=== PATIENT | male | born 1960 | race Caucasian/White ===

== ENCOUNTER 2024-02-15 14:45 | Outpatient (REF) | payer BC, SELFPAY ==
--- NOTE | ~2024-02-15 | XR_ITS ---
EXAMINATION: XR CHEST CLINICAL INFORMATION: COPD COMPARISON: None available. TECHNIQUE: 2 views of the chest were obtained. FINDINGS: The cardiac silhouette is normal. There is mild diffuse bronchial wall thickening. There are no areas of consolidation. There are no pleural effusions or pneumothoraces. The bones and soft tissues are unremarkable for the patient's age. XR/XR chest 2V IMPRESSION: Bronchial wall thickening may be infectious and/or inflammatory in etiology. Electronically signed by: Lorna Bucio MD 02/16/2024 04:08 AM EDT RP
== END 2024-02-15 14:46 | disposition home or self-care (01) ==
LOC: HO.XRAY 14:45
PROVIDERS: PCP Internal Medicine; Visit Provider Hospitalist
DX: J44.89 Other specified chronic obstructive pulmonary disease (principal); Z23 Encounter for immunization
CPT/HCPCS: 71046; 90677

== ENCOUNTER 2024-02-15 14:45 | Outpatient (AMB) | payer BC, SELFPAY ==
--- NOTE | 2024-02-15 14:54 | A.OFFVIS_ITS ---
Vital Signs 02/15/24 14:55 Height 6 ft Weight 299 lb 13.259 oz BMI 40.7 Pulse 62 Pulse Source Pulse Oximeter Pulse Oximetry (%) 98 Oxygen Delivery Method Room Air Intake Visit Reasons: copd, pulm nodules and pneumonia Can Stacker Required: No Allergies sulfamethoxazole [From Bactrim] Adverse Reaction (Severe, Verified 02/15/24 14:57) Rash trimethoprim [From Bactrim] Adverse Reaction (Severe, Verified 02/15/24 14:57) Rash HPI Comments Details: The patient is here for pulmonary evaluation. The patient is a 63-year-old gentleman with a known history of COPD in addition peumonia not presenting with recent pneumonia and abnormal chest x-ray. Pearly many years ago the patient is evaluated by Pulmonary and had an abnormal CT scan of the chest. At that point the patient did undergo a bronchoscopy for underlying cough chest congestion. The bronchoscopy demonstrated significant cerebral secretions. 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 The patient was treated effectively his symptoms improved for many years. He did continue to use his respiratory inhalers. However, more recently the patient started developing worsening cough again chest congestion. He went to [facility] where he was evaluated. There he had a chest x-ray demonstrating some slight silhouetting of the right hemidiaphragm. Also some slight airspace disease and atelectasis. He was placed on antibiotics and currently he is starting to feel better. Is still having shortness of breath and also having cough. His congestion is indeed better. The patient does have some snoring. Although he denies having significant daytime drowsiness. He has had sleep studies in the past and have been. reassuring. On examination the patient is to have some ectopy. On further questioning he does state that he has had some palpitations. In view of that I do believe that switching his inhaler will be helpful to minimize the beta effect from the Symbicort. He has also been using his albuterol once or twice a day. I did encourage him to just use it as needed in view of his underlying ectopy. I do believe Trelegy will be a good option for him to minimize the palpitations and to maximize his bronchodilator effect. The patient also has chest congestion and with the atelectasis will benefit from a Acapella valve for chest physical therapy. I do believe that dose to additions will be helpful. Will go ahead and plan to repeat the x-ray. If is still has those changes primarily in the right base will plan to request a CT scan of the chest. [facility] Medical History (Updated 02/15/24 @ 23:06 by Kobe Michaels MD) Ventricular ectopy Chronic cough Pneumonia Asthma-COPD overlap syndrome Social History (Updated 02/15/24 @ 15:02 by JOHN Thurston) Patient Tobacco Use Status: Former Tobacco user Tobacco use type: Cigarette Years Smoked: 30+ Years Review of Systems Const Denies fever(s) Eyes Reports no additional complaints ENT Denies sore throat Card Denies chest pain Resp Reports chest congestion, Reports cough and Reports wheezing GI Reports no additional complaints Musc Reports no additional complaints Skin/Breast Denies rash Freddie/Lymph Denies lymphadenopathy Aller/Immun Reports wheezing Physical Exam Vital Signs: Last Vital Signs Pulse 62 02/15/24 14:55 Pulse Ox 98 02/15/24 14:55 Oxygen Delivery Method Room Air 02/15/24 14:55 BMI result Body Mass Index 40.7 Const General: comfortable HEENT Head: Yes normocephalic Neck Neck: Yes supple Chest Chest palpation & inspection: normal inspection of the chest Resp Effort & Inspection: normal respiratory effort Auscultation: no rhonchi, no wheezes and diminished lung sounds Cardio Rate: regular rate Rhythm: regular rhythm and other (ectopy) Heart sounds: S1 normal heart sound present and S2 normal heart sound present GI Palpation (GI): Soft to palpation Skin General skin exam: no rashes or lesions noted Extrem General: Yes no clubbing, cyanosis or edema Assessment & Plan Assessment & Plan (1) Asthma-COPD overlap syndrome: Code(s): J44.89 - Other specified chronic obstructive pulmonary disease Category: Medical (2) Pneumonia: Code(s): J18.9 - Pneumonia, unspecified organism Category: Medical Qualifiers: Pneumonia type: due to unspecified organism Laterality: right Lung location: lower lobe of lung Qualified Code(s): J18.9 - Pneumonia, unspecified organism (3) Chronic cough: Code(s): R05.3 - Chronic cough Category: Medical (4) Ventricular ectopy: Code(s): I49.3 - Ventricular premature depolarization Category: Medical Plan CXR, if abnormal will need aCT chest stop symbicort start Trelegy JOSH as needed Orders: Orders XR chest 2V Today J44.89 - Other specified chronic obstructive pulmonary disease Medications: New [id number]-fghksmlwq-[id number] 100-62.5-25 mcg (Trelegy Ellipta) 1 inh inhalation DAILY 60 ea 11RF 30 days J44.9 - Chronic obstructive pulmonary disease, unspecified Coding Level of Care Code New Pt Level 4 (88072) Diagnoses Asthma-COPD overlap syndrome J44.89 Pneumonia of right lower lobe due to infectious organism J18.9 Pneumonia type: due to unspecified organism Laterality: right Lung location: lower lobe of lung Chronic cough R05.3 Ventricular ectopy I49.3 Time Spent (min) 34
[2024-02-15 14:55] VITALS: PULSE 62; O2SAT 98; BMI 40.7
== END 2024-02-15 15:33 | disposition home or self-care (01) ==
PROVIDERS: PCP Internal Medicine; Referring Provider Internal Medicine; Visit Provider Hospitalist
DX: Z23 Encounter for immunization (principal)
CPT/HCPCS: 99204

== ENCOUNTER 2024-03-18 12:22 | Outpatient (REF) | payer BC, SELFPAY ==
--- NOTE | ~2024-03-18 | CT_ITS ---
EXAMINATION: CT CHEST WITHOUT CONTRAST CLINICAL INFORMATION: Pneumonia COMPARISON: Radiograph from February 15, 2024 TECHNIQUE: Multidetector volumetric CT imaging of the chest was done. Axial MIP volume rendering provided. Sagittal and coronal reformatted images were obtained. This CT examination was performed using dose optimization techniques as appropriate, variously including the following: *Automated exposure control *Adjustment of mA and/or kV according to patient size (this includes techniques or standardized protocols for targeted exams where dose is matched to indication/reason for exam; i.e. extremities or head) *Use of iterative reconstruction technique DLP: 336 mGy-cm FINDINGS: CLOTH MENDER: Unremarkable LUNGS: There is spiculated nodule in the left upper lobe, measured approximately 1.2 x 1.1 cm seen on image 167 series 5, 0.9 cm on image 203, there are few smaller sized nodules seen. There are few nodules in the left lower lobe, such is a conglomerate nodules seen on image 231 and measured 1.4 cm, triangularly shaped consolidation surrounded by groundglass opacity seen in the left lower lobe on image 299, measured 2.5 x 1.2 cm. Irregular consolidation seen in the left lower lobe adjacent to the diaphragm, image 410. Calcified granuloma seen in the left lower lobe subpleural on image 468. On the right, there is oval-shaped nodule seen in the left upper lobe measured 0.6 cm, image 192. 0.3 cm nodule seen on image 203 in the right upper lobe irregular opacity seen on image 223, measured 1.75 x 1.1 cm there is irregular right lower lobe nodule measured 0.5 cm, image 244 There are mild changes of emphysema MEDIASTINUM: The mediastinum is normal. CORONARY ARTERY CALCIFICATION: None visualized on this study. PLEURA: There is no pleural effusion. No pleural mass or thickening. AXILLA: No lymphadenopathy. UPPER ABDOMEN: Unremarkable. OSSEOUS STRUCTURES: Unremarkable. CT/CT chest wo IV con IMPRESSION: 1. Multiple lung nodules and irregular opacities bilaterally. Consider possibility of infection rather than metastasis. 2. Mild changes of emphysema. Fleischner guidelines were followed. Electronically signed by: Gumaro Lane MD 03/20/2024 10:48 AM EDT
== END 2024-03-18 12:23 | disposition home or self-care (01) ==
LOC: HO.CT 12:22
PROVIDERS: PCP Internal Medicine; Visit Provider Hospitalist
DX: J18.9 Pneumonia, unspecified organism (principal); R05.3 Chronic cough; R93.89 Abnormal findings on diagnostic imaging of other specified body structures
CPT/HCPCS: 71250

== ENCOUNTER 2024-03-22 16:37 | Outpatient (REF) | payer BC, SELFPAY | END 2024-03-22 16:38 | disposition home or self-care (01) | LOC: HO.LNP 16:37 | PROVIDERS: Visit Provider Hospitalist | DX: R91.8 Other nonspecific abnormal finding of lung field (principal) | CPT/HCPCS: 87070; 87116; 87205; 87206 ==

== ENCOUNTER 2024-03-28 07:43 | Emergency (ER) | payer BC, SELFPAY ==
--- NOTE | ~2024-03-28 | XR_ITS ---
EXAMINATION: XR CHEST CLINICAL INFORMATION: Cough, recent pneumonia. COMPARISON: CT chest 03/18/2024. Chest radiograph 02/15/2024. TECHNIQUE: 2 views of the chest were obtained. FINDINGS: Compared to chest radiograph from 02/15/2024, increased focal reticulonodular opacities in the lateral left mid to upper lung field and similar degree of diffuse bronchial wall thickening. Several additional pulmonary nodules are better visualized on prior CT chest from 03/18/2024. No pleural effusion. No pneumothorax. Unchanged cardiomediastinal silhouette. No acute osseous findings. XR/XR chest 2V IMPRESSION: Compared to chest radiograph from 02/15/2024, increased focal reticulonodular opacities in the lateral left mid to upper lung field and similar degree of diffuse bronchial wall thickening. Findings are indeterminate and could be related with an infectious/inflammatory process of the small airways. Nevertheless, malignancy cannot be entirely excluded. Consider further evaluation with CT chest. Several additional lung nodules are better visualized on the prior CT chest. Electronically signed by: Mariam Khan MD 03/28/2024 11:11 AM EDT
--- NOTE | ~2024-03-28 | CT_ITS ---
EXAMINATION: CT CHEST WITHOUT CONTRAST CLINICAL INFORMATION: Cough. Abnormal chest radiograph. COMPARISON: Chest radiograph dated 03/28/[address] chest dated 03/18/2024. TECHNIQUE: Multidetector volumetric CT imaging of the chest was done. Axial MIP volume rendering provided. Sagittal and coronal reformatted images were obtained. This CT examination was performed using dose optimization techniques as appropriate, variously including the following: *Automated exposure control *Adjustment of mA and/or kV according to patient size (this includes techniques or standardized protocols for targeted exams where dose is matched to indication/reason for exam; i.e. extremities or head) *Use of iterative reconstruction technique DLP: 472 mGy-cm FINDINGS: TELECOMMUNICATIONS CABLE JOINTER: Unremarkable. LUNGS: Irregular bilateral focal airspace opacities/densities are redemonstrated. These have increased in number when compared to the chest CT dated 03/18/2024 with slight interval decrease in size of the previously seen irregular foci. The waxing and waning appearance of the lesions favors an infectious or inflammatory process over a malignant process. No large mass or large, confluent airspace consolidation. The central airways are patent. MEDIASTINUM: No cardiomegaly. No pericardial effusion. No thoracic aortic dilatation. No superior mediastinal or hilar lymphadenopathy. Unremarkable thyroid. CORONARY ARTERY CALCIFICATION: None. PLEURA: Trace left pleural fluid versus thickening, unchanged. No large pleural effusion. No pneumothorax. AXILLA: No lymphadenopathy. UPPER ABDOMEN: Unremarkable. OSSEOUS STRUCTURES: Unremarkable. CT/CT chest wo IV con IMPRESSION: 1. Irregular bilateral focal airspace opacities/densities are redemonstrated. These have increased in number when compared to the chest CT dated 03/18/2024 with slight interval decrease in size of the previously seen irregular foci. The waxing and waning appearance of the lesions favors an infectious or inflammatory process over a malignant process. 2. No new or increasing lymphadenopathy. Fleischner guidelines were followed. Electronically signed by: Justin Thomas MD 03/28/2024 01:35 PM EDT
[2024-03-28 07:57] VITALS: BP 157/62; PULSE 65; RESP 18; TEMP 37.3; O2SAT 98; BMI 41.7
[2024-03-28 08:11] LABS: MANUAL DIFF FLAG NO
[2024-03-28 08:13] LABS: Basophils Percent Auto 0.4 % (0-2); Eosinophils Absolute Auto 0.1 X10*3/uL (0.0-0.4); Hemoglobin 13.5 g/dl (14.0-18.0); Imm Gran Abs Auto 0.07 X10*3/uL (0.00-0.03); Imm Gran Pct Auto 0.6 % (0.0-0.4); Lymphocytes Absolute Auto 1.3 X10*3/uL (1.2-4.9); Lymphocytes Percent Auto 11.4 % (20-40); Mean Corpuscular HGB Conc 32.9 g/dl (31.0-36.0); Mean Corpuscular Hemoglobin 26.7 pg (27.0-33.0); Mean Corpuscular Volume 81.2 fL (80.0-98.0); Monocytes Absolute Auto 1.3 X10*3/uL (0.1-1.2); Monocytes Percent Auto 11.5 % (2-11); Neutrophils Absolute Auto 8.5 x10*3/uL (2.0-8.3); Neutrophils Percent Auto 75.1 % (45-73); Platelet Count 234 X10*3/uL (160-400); Red Blood Count 5.05 X10*6/uL (4.60-5.80); Red Cell Distribution Width 16.7 % (11.0-16.0); White Blood Count 11.3 X10*3/uL (4.8-10.8)
[2024-03-28 08:26] LABS: Anion Gap 9 (12-20); Blood Urea Nitrogen 17 mg/dL (9-16); Calcium 9.1 mg/dL (8.4-10.2); Carbon Dioxide 25 mmol/L (22-29); Chloride 109 mmol/L (96-108); Creatinine Clr Calc Pharmacy 97.9; Estimated Glomerular Filt Rate > 60; Glucose Random 118 mg/dL (60-115); Sodium 139 mmol/L (135-145)
[2024-03-28 11:22] LABS: Influenza A PCR NEGATIVE (Negative); Influenza B PCR NEGATIVE (Negative); Resp Syncy Virus RNA Qual PCR NEGATIVE (Negative); SARS COV2 PCR INHOUSE NEGATIVE (Negative)
--- NOTE | 2024-03-28 13:17 | ED.URI ---
HPI - URI/Sore Throat General Chief Complaint: Upper Respiratory Symptoms Stated Complaint: quest pneumonia Time Seen by Provider: 03/28/24 12:50 Source: patient and RN notes reviewed Mode of arrival: ambulatory Limitations: no limitations History of Present Illness ED Provider: Mena Max PA-C HPI Narrative: This is a 63-year-old male, with a history of emphysema, who presents emergency department with complaints of ongoing productive cough, subjective fevers and chills, body aches, shortness of breath x 3 weeks, worsening over the last 3 days. Patient was seen by Dr. Michaels on February 15, 2024 after having an abnormal chest x-ray performed in November. He was treated for pneumonia at that time. He was then seen by Dr. Michaels as patient reports approximately 10 years ago he had to have had a bronchoscopy for underlying cough and chest congestion. The bronchoscopy revealed significant secretions, and his sputum culture was positive for Moraxella catarrhalis. At that time he was treated successfully and his symptoms resolved for many years. This year he developed worsening cough and congestion and he was seen at [facility] where there was concern for a pneumonia and was treated with antibiotics and started to feel better. He continues to have ongoing shortness for breath and cough which is why he was seen by Dr. Michaels. He also mentions that he was switch to a Breo inhaler as his previous inhaler was giving him palpitations. He states he was started on Augmentin to treat for a pneumonia on March 11, 2024. He took this for 10 days and felt his symptoms improving up until 3-4 days ago where he developed chest congestion, subjective fevers and chills, body aches. He had a chest CT on 03/18/2024 where there was multiple lung nodules in irregular opacities bilaterally, considering possibility of infection rather than metastasis, mild changes in emphysema. He denies any chest pain, abdominal pain, diarrhea or vomiting. He states that he has had some nausea. He was a former smoker, quit 15 years ago. He also reports drenching night sweats, states that yesterday he had to change his shirt 3 times during the night. No changes in his weight. He denies chest pain, abdominal pain, changes in bowel habits, urinary symptoms, back pain. No other complaints or concerns at this time. MD elicited complaint: cough Pertinent past history: pneumonia and COPD Onset (ago): week(s) Consistency: constant Severity: moderate Associated symptoms: denies other symptoms Treatments prior to arrival: acetaminophen Related Data Home Medications ?Medication ?Instructions ?Recorded ?Confirmed albuterol sulfate 90 mcg/actuation 2 puff inhalation Q6H PRN 02/15/24 aerosol inhaler citalopram 40 mg tablet (Celexa) 20 mg PO DAILY 02/15/24 clonazepam 0.5 mg tablet (Klonopin) 0.5 mg PO DAILY 02/15/24 lamotrigine 25 mg tablet (Lamictal) 25 mg PO DAILY 02/15/24 quetiapine 25 mg tablet (Seroquel) 25 mg PO BEDTIME 02/15/24 topiramate 25 mg tablet (Topamax) 25 mg PO DAILY 02/15/24 trazodone 100 mg tablet 100 mg PO BEDTIME PRN 02/15/24 Previous Rx's ?Medication ?Instructions ?Recorded fluticasone furoate 200 1 inh inhalation DAILY 30 days #60 03/09/24 mcg-vilanterol 25 mcg/dose ea inhalation powder (Breo Ellipta) amoxicillin 875 mg-potassium 1 tab PO BID 10 days #20 tabs 03/11/24 clavulanate 125 mg tablet cefuroxime axetil 500 mg tablet 500 mg PO BID 7 days #14 tabs 03/28/24 doxycycline hyclate 100 mg capsule 100 mg PO BID 7 days #14 caps 03/28/24 Allergies Allergy/AdvReac Type Severity Reaction Status Date / Time sulfamethoxazole AdvReac Severe Rash Verified 03/28/24 07:58 [From Bactrim] trimethoprim [From Bactrim] AdvReac Severe Rash Verified 03/28/24 07:58 Review of Systems Review of Systems: Yes all other systems are reviewed and are negative Constitutional: Constitutional: Reports as per [facility] Past Medical History Attestation statement: The following information was validated with the patient. Medical History Pulmonary nodules Ventricular ectopy Chronic cough Pneumonia Asthma-COPD overlap syndrome Social History Social History Patient Tobacco Use Status: Former Tobacco user Tobacco use type: Cigarette Years Smoked: 30+ Years Physical Exam Vital Signs: Vital Signs: Last Vital Signs Temp 99.1 F 03/28/24 16:14 Pulse 65 03/28/24 16:14 Resp 18 03/28/24 16:14 BP 157/62 H 03/28/24 16:14 Pulse Ox 98 03/28/24 16:14 O2 Del Method Room Air 03/28/24 16:14 BMI result Body Mass Index 41.7 Const: General: cooperative, comfortable and no acute distress Orientation/consciousness: patient oriented x3 Limitations: no limitations HEENT: Head: Yes normal to inspection, Yes normocephalic and Yes atraumatic Ears: hearing grossly normal bilaterally General nose exam: Normal external nose present Face and sinus: Yes normal facial exam Mouth: Normal oral and palatal mucosa present, oropharynx normal and moist mucous membranes Throat: Yes posterior oropharynx normal Eyes: General: appearance normal, both eyes and all related structures Eyelids: Yes eyelids normal Conjunctivae: conjunctivae normal Sclerae: sclerae normal Pupils: Equal, round and reactive pupils present EOM: EOMs intact bilaterally Neck: Neck: Yes normal visual inspection, Yes full ROM and Yes no lymphadenopathy Lymphatic: no lymphadenopathy noted Chest: Chest palpation & inspection: normal inspection of the chest Resp: Effort & Inspection: normal respiratory effort and able to speak in complete sentences Auscultation: clear to auscultation bilaterally, no crackles, no rales, no rhonchi and no wheezes Cardio: Rate: regular rate Rhythm: regular rhythm Heart sounds: S1 normal heart sound present and S2 normal heart sound present GI: Inspection: Yes normal to inspection Skin: General skin exam: no rashes or lesions noted Trauma: no lacerations or abrasions Wounds: no wounds Neuro: General: patient oriented x3 and moves all extremities Cranial nerves: Yes Equal, round and reactive pupils present Extrem: Other: no BL pitting edema noted General: Yes normal to inspection Right upper extremity: normal to inspection Left upper extremity: normal to inspection Right lower extremity: normal to inspection Left lower extremity: normal to inspection Course Reevaluation(s) Reevaluation #1: CT chest returns as Irregular bilateral focal airspace opacities/densities are redemonstrated. These have increased in number when compared to the chest CT dated 03/18/2024 with slight interval decrease in size of the previously seen irregular foci. The waxing and waning appearance of the lesions favors an infectious or inflammatory process over a malignant process. No new or increasing lymphadenopathy. Gven this is not a definitive pneumonia picture, it is unclear if this is a true failure of outpatient management for pneumonia. Given that patient has normal vitals, normal lung sounds, and improved while being on ABX before, will trial double coverage ABX with a cephalosporin and doxycycline as well as prednisone. Discussed this with lamp shade assembler, Dr. Michaels who is in agreement and will f/u with patient on thursday. Discussed overall workup with patient who is in agreement with this. Discussed strict return precautions. Pt understands and agrees with plan. Pt stable for d.c. Medications Administered Discontinued Medications Generic Name Dose Route Start Last Admin Trade Name Freq PRN Reason Stop Dose Admin Acetaminophen 975 mg 03/28/24 13:54 03/28/24 14:49 Acetaminophen 325 Mg Tablet PO 03/28/24 13:55 975 mg ONCE ONE Administration Cefuroxime Axetil 500 mg 03/28/24 15:48 03/28/24 16:12 Cefuroxime Axetil 500 Mg Tablet PO 03/28/24 15:49 500 mg ONCE ONE Administration Doxycycline Monohydrate 100 mg 03/28/24 15:48 03/28/24 16:12 Doxycycline Monohydrate 100 Mg Capsule PO 03/28/24 15:49 100 mg ONCE ONE Administration Medical Decision Making Medical Decision Making [facility] Narrative: This is a 63-year-old male who presents emergency department with complaints of cough, congestion, subjective fevers and chills, drenching night sweats. He has had ongoing lung infections, previously diagnosed with pneumonia twice this past year, recently diagnosed with pneumonia on March 11, 2024 and was treated with a ten-day course of Augmentin. He states that his symptoms did improve while on the antibiotics however have worsened. On arrival, vital signs within normal limits other than patient being slightly hypertensive at 157/62. He is afebrile, speaking in full sentences under no acute distress. Lungs are diminished otherwise clear to auscultation. He has no lower extremity swelling. Labs were performed prior to my assessment, he does have a slight leukocytosis at 11.3, creatinine 1.1 with a BUN of 17. Glucose 118. No previous labs for comparison. A chest x-ray was performed prior to my assessment. This revealed increased focal reticular nodular opacities in the left lateral mid to upper lung field and similar degree of diffuse bronchial wall thickening. Indeterminate with infectious versus inflammatory process in the small airways however malignancy can not be excluded. CT scan was recommended. CT scan still pending at this time. Given ongoing symptoms, as well as failure of outpatient antibiotic treatment, patient may need inpatient level of care however will await CT scan for further diagnostics. Lactic and cultures also ordered. Differential Diagnosis Differential Diagnoses: The differential diagnosis associated with the presentation includes Pneumonia, malignancy, URI, COPD exacerbation Admission/Observation Consideration of admission/observation: Escalation of care including admission/observation considered Lab Data [facility] Lab Attestation statement: I reviewed the patient's lab results. Slight leukocytosis at 11.3, with left shift, see above [facility] for further details. 03/28/24 08:04 03/28/24 08:04 Labs: Lab Results 03/28/24 03/28/24 Range/Units 08:04 10:30 WBC 11.3 H (4.8-10.8) X10*3/uL RBC 5.05 (4.60-5.80) X10*6/uL Hgb 13.5 L (14.0-18.0) g/dl Hct 41.0 L (42.0-52.0) % MCV 81.2 (80.0-98.0) fL MCH 26.7 L (27.0-33.0) pg MCHC 32.9 (31.0-36.0) g/dl RDW 16.7 H (11.0-16.0) % Plt Count 234 (160-400) X10*3/uL MPV 10.0 (9.4-12.4) fL Immature Gran % (Auto) 0.6 H (0.0-0.4) % Neut % (Auto) 75.1 H (45-73) % Lymph % (Auto) 11.4 L (20-40) % Taylor % (Auto) 11.5 H (2-11) % Eos % (Auto) 1.0 (0-4) % Baso % (Auto) 0.4 (0-2) % Lymph # (Auto) 1.3 (1.2-4.9) X10*3/uL Taylor # (Auto) 1.3 H (0.1-1.2) X10*3/uL Eos # (Auto) 0.1 (0.0-0.4) X10*3/uL Baso # (Auto) 0.0 (0.0-0.2) X10*3/uL Abs Immat Gran (auto) 0.07 H (0.00-0.03) X10*3/uL Absolute Neuts (auto) 8.5 H (2.0-8.3) x10*3/uL Absolute Nucleated RBC 0.000 (0.0-0.012) X10*3/uL Nucleated RBC % (auto) 0.0 (0.0-0.2) /100WBC Sodium 139 (135-145) mmol/L Potassium 4.0 (3.3-5.1) mmol/L Chloride 109 H (96-108) mmol/L Carbon Dioxide 25 (22-29) mmol/L Anion Gap 9 L (12-20) BUN 17 H (9-16) mg/dL Creatinine 1.10 (0.5-1.4) mg/dL Estim Creat Clear Calc 97.9 Estimated GFR > 60 Random Glucose 118 H (60-115) mg/dL Calcium 9.1 (8.4-10.2) mg/dL Influenza Type A (PCR) NEGATIVE (Negative) Influenza Type B (PCR) NEGATIVE (Negative) RSV RNA Qual (PCR) NEGATIVE (Negative) SARS-CoV-2 RNA (RT-PCR) NEGATIVE (Negative) Radiology Impression Discussion of test interpretation with radiology: I have reviewed the radiologist's reading. Radiologist Impression: XR/XR chest 2V IMPRESSION: Compared to chest radiograph from 02/15/2024, increased focal reticulonodular opacities in the lateral left mid to upper lung field and similar degree of diffuse bronchial wall thickening. Findings are indeterminate and could be related with an infectious/inflammatory process of the small airways. Nevertheless, malignancy cannot be entirely excluded. Consider further evaluation with CT chest. Several additional lung nodules are better visualized on the prior CT chest. Electronically signed by: Mariam Khan MD 03/28/2024 11:11 AM EDT RP Dictated By: Mariam Khan CT/CT chest wo IV con IMPRESSION: 1. Irregular bilateral focal airspace opacities/densities are redemonstrated. These have increased in number when compared to the chest CT dated 03/18/2024 with slight interval decrease in size of the previously seen irregular foci. The waxing and waning appearance of the lesions favors an infectious or inflammatory process over a malignant process. 2. No new or increasing lymphadenopathy. Fleischner guidelines were followed. Electronically signed by: Justin Thomas MD 03/28/2024 01:35 PM EDT RP Workstation: [id number] Dictated By: Justin Thomas MD Discharge Plan Discharge Clinical Impression: Upper respiratory infection, Chronic cough Patient Disposition: Home, Self-Care Instructions: Upper Respiratory Infection (ED), Acute Cough (ED) Additional Instructions: You were seen in the emergency department due to an ongoing cough. Your CT scan shows infectious versus inflammatory process. However you need to follow-up with Dr. Michaels as scheduled on Thursday. We are placing you on double coverage antibiotics to treat as if this was an infectious process. Please finish the entire course even if your feeling better you were given your 1st dose in the department today. I am also prescribing you prednisone, please take as prescribed. If any new or worsening symptoms occur including but not limited to fevers not responding to Tylenol or Motrin, severe chest pain severe shortness for breath, palpitations, please return for re-evaluation. Prescriptions: New doxycycline hyclate 100 mg capsule 100 mg PO BID 7 Days Qty: 14 0RF cefuroxime axetil 500 mg tablet 500 mg PO BID 7 Days Qty: 14 0RF No Action fluticasone furoate-vilanterol [Breo Ellipta] 200-25 mcg/dose blister with device 1 inh inhalation DAILY 30 Days Qty: 60 11RF amoxicillin-pot clavulanate 875-125 mg tablet 1 tab PO BID 10 Days Qty: 20 0RF albuterol sulfate 90 mcg/actuation HFA aerosol inhaler 2 puff inhalation Q6H PRN citalopram [Celexa] 40 mg tablet 20 mg PO DAILY trazodone 100 mg tablet 100 mg PO BEDTIME PRN quetiapine [Seroquel] 25 mg tablet 25 mg PO BEDTIME lamotrigine [Lamictal] 25 mg tablet 25 mg PO DAILY topiramate [Topamax] 25 mg tablet 25 mg PO DAILY clonazepam [Klonopin] 0.5 mg tablet 0.5 mg PO DAILY Stand Alone Forms: Work/School Release Interventions: ED Discharge Assessment Last Done: 03/28/24 16:14 Discharge Date/Time: 03/28/24 16:15 Print Language: Maori
[2024-03-28] MEDS: Acetaminophen 325 MG TABLET 975 MG PO (14:49)
[2024-03-28] MEDS: Doxycycline Monohydrate 100 MG CAPSULE PO (16:12)
[2024-03-28] MEDS: cefuroxime axetiL 500 MG TABLET PO (16:12)
[2024-03-28 16:14] VITALS: BP 157/62; PULSE 65; RESP 18; TEMP 37.3; O2SAT 98
== END 2024-03-28 16:15 | disposition home or self-care (01) ==
PROVIDERS: Physician Assistant Medical; Emergency Provider Emergency Medicine; PCP Internal Medicine
DX: J06.9 Acute upper respiratory infection, unspecified (principal); R05.3 Chronic cough; R06.02 Shortness of breath; Z03.818 Encounter for observation for suspected exposure to other biological agents ruled out; Z87.01 Personal history of pneumonia (recurrent)
CPT/HCPCS: 0241U; 36415; 71046; 71250; 80048; 85025; 87040; 99283; 99284

== ENCOUNTER 2024-04-01 14:59 | Outpatient (AMB) | payer BC, SELFPAY ==
[2024-04-01 15:19] VITALS: BP 138/68; PULSE 66; O2SAT 98; BMI 42.1
--- NOTE | 2024-04-01 15:19 | MHC.OFFVIS ---
Vital Signs 04/01/24 15:19 Height 5 ft 11 in Weight 302 lb 0.533 oz BMI 42.1 BP 138/68 Blood Pressure Location Lt brachial Position Sitting Pulse 66 Pulse Source Pulse Oximeter Pulse Oximetry (%) 98 Oxygen Delivery Method Room Air Intake Visit Reasons: Pneumonia Weighbridge Operator Required: No Allergies sulfamethoxazole [From Bactrim] Adverse Reaction (Severe, Verified 04/01/24 15:22) Rash trimethoprim [From Bactrim] Adverse Reaction (Severe, Verified 04/01/24 15:22) Rash HPI Comments Details: The patient is a 63-year-old gentleman with a known history of COPD in addition peumonia now presenting with recent pneumonia and abnormal chest x-ray. Pearly many years ago the patient is evaluated by Pulmonary and had an abnormal CT scan of the chest. At that point the patient did undergo a bronchoscopy for underlying cough chest congestion. The bronchoscopy demonstrated significant secretions. 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 The patient was treated effectively his symptoms improved for many years. He did continue to use his respiratory inhalers. However, more recently the patient started developing worsening cough again chest congestion. He went to [facility] urgent Care where he was evaluated. There he had a chest x-ray demonstrating some slight silhouetting of the right hemidiaphragm. Also some slight airspace disease and atelectasis. He was placed on antibiotics and currently he is starting to feel better. Is still having shortness of breath and also having cough. His congestion is indeed better. The patient does have some snoring. Although he denies having significant daytime drowsiness. He has had sleep studies in the past and have been. reassuring. On examination the patient is to have some ectopy. On further questioning he does state that he has had some palpitations. In view of that I do believe that switching his inhaler will be helpful to minimize the beta effect from the Symbicort. He has also been using his albuterol once or twice a day. I did encourage him to just use it as needed in view of his underlying ectopy. I do believe Trelegy will be a good option for him to minimize the palpitations and to maximize his bronchodilator effect. The patient also has chest congestion and with the atelectasis will benefit from a Acapella valve for chest physical therapy. I do believe that dose to additions will be helpful. Will go ahead and plan to repeat the x-ray. If is still has those changes primarily in the right base will plan to request a CT scan of the chest. 04/01/2024 the patient is here for a pulmonary follow-up visit. The patient is no better. He is still having significant congestion. Moderate severity. Also shortness of breath. Did complete a course of antibiotics without any significant improvement. The patient did have a normal CT scan back in the end of February. Subsequently after that was treated and then a repeat CT scan was done actually demonstrating worsening areas of irregular nodular densities in addition to patchy consolidations and pulmonary nodules. In view of his worsening CT scan and is ineffective response to antibiotics will plan to perform a bronchoscopy for diagnostic purposes and also hopefully for therapeutic purposes as well. Also, the patient will undergo blood work to further assess the worsening respiratory findings. [facility] Medical History Pulmonary nodules Ventricular ectopy Chronic cough Pneumonia Asthma-COPD overlap syndrome Social History Patient Tobacco Use Status: Former Tobacco user Tobacco use type: Cigarette Years Smoked: 30+ Years Review of Systems Const Denies fever(s) Eyes Reports no additional complaints ENT Denies sore throat Card Denies chest pain Resp Reports chest congestion, Reports cough and Reports wheezing GI Reports no additional complaints Musc Reports no additional complaints Skin/Breast Denies rash Freddie/Lymph Denies lymphadenopathy Aller/Immun Reports wheezing Physical Exam Vital Signs: Last Vital Signs Pulse 66 04/01/24 15:19 BP 138/68 04/01/24 15:19 Pulse Ox 98 04/01/24 15:19 Oxygen Delivery Method Room Air 04/01/24 15:19 BMI result Body Mass Index 42.1 Const General: comfortable HEENT Head: Yes normocephalic Neck Neck: Yes supple Chest Chest palpation & inspection: normal inspection of the chest Resp Effort & Inspection: normal respiratory effort Auscultation: no rhonchi, no wheezes and diminished lung sounds Cardio Rate: regular rate Rhythm: regular rhythm and other (ectopy) Heart sounds: S1 normal heart sound present and S2 normal heart sound present GI Palpation (GI): Soft to palpation Skin General skin exam: no rashes or lesions noted Extrem General: Yes no clubbing, cyanosis or edema Assessment & Plan Assessment & Plan (1) Asthma-COPD overlap syndrome: Code(s): J44.89 - Other specified chronic obstructive pulmonary disease Category: Medical (2) Pneumonia: Code(s): J18.9 - Pneumonia, unspecified organism Category: Medical Qualifiers: Laterality: right Lung location: lower lobe of lung Pneumonia type: due to unspecified organism Qualified Code(s): J18.9 - Pneumonia, unspecified organism (3) Chronic cough: Code(s): R05.3 - Chronic cough Category: Medical (4) Pulmonary nodules: Code(s): R91.8 - Other nonspecific abnormal finding of lung field Category: Medical Plan bloodwork plan for bronchoscopy Trelegy JOSH as needed Orders: Orders T Spot TB Today J18.9 - Pneumonia, unspecified organism, R91.8 - Other nonspecific abnormal finding of lung field HIV Ab/Ag Today J18.9 - Pneumonia, unspecified organism, R91.8 - Other nonspecific abnormal finding of lung field Immunoglobulins,IgG IgA IgM Today J18.9 - Pneumonia, unspecified organism, R91.8 - Other nonspecific abnormal finding of lung field Immunoglobulin E Today J18.9 - Pneumonia, unspecified organism, R91.8 - Other nonspecific abnormal finding of lung field Erythrocyte Sedimentation Rate Today J18.9 - Pneumonia, unspecified organism, R91.8 - Other nonspecific abnormal finding of lung field ISAMAR Reflex Titer and Pattern Today J18.9 - Pneumonia, unspecified organism, R91.8 - Other nonspecific abnormal finding of lung field Medications: New albuterol sulfate 2.5 mg (3 mL) inhalation Q6H 30 days PRN 180 mL 11RF shortness of breath or wheezing Coding Level of Care Code Est Pt Level 4 (24161) Diagnoses Asthma-COPD overlap syndrome J44.89 Pneumonia of right lower lobe due to infectious organism J18.9 Laterality: right Lung location: lower lobe of lung Pneumonia type: due to unspecified organism Chronic cough R05.3 Pulmonary nodules R91.8 Time Spent (min) 17
== END 2024-04-01 15:39 | disposition home or self-care (01) ==
PROVIDERS: PCP Internal Medicine; Visit Provider Hospitalist
DX: J44.89 Other specified chronic obstructive pulmonary disease (principal); J18.9 Pneumonia, unspecified organism; R05.3 Chronic cough; R91.8 Other nonspecific abnormal finding of lung field
CPT/HCPCS: 99214

== ENCOUNTER → 2024-04-01 14:59 | Outpatient (BNVA) | payer BC, SELFPAY | PROVIDERS: PCP Internal Medicine; Visit Provider Hospitalist ==

== ENCOUNTER 2024-04-04 11:25 | Outpatient (REF) | payer BC, SELFPAY ==
[2024-04-04 13:03] LABS: Erythrocyte Sedimentation Rate 16 MM/HR (0-15)
[2024-04-05 07:48] LABS: IgA 354 mg/dL (70-320); IgG 994 mg/dL (600-1540); IgM 52 mg/dL (50-300)
[2024-04-05 08:23] LABS: HIV AB/AG Nonreactive (Nonreactive); HIV Num 1 0.05 S/CO (0.00-0.99)
[2024-04-05 14:23] LABS: Immunoglobulin E <2 kU/L (<OR=114)
[2024-04-06 08:14] LABS: Anti Nuclear Antibody Screen NEGATIVE (NEGATIVE)
[2024-04-06 22:38] LABS: TS Negative Control Passed; TS Panel A 0; TS Panel B 1; TS Positive Control Passed; TSpotTB Negative (Negative)
== END 2024-04-04 11:26 | disposition home or self-care (01) ==
LOC: HO.LAB 11:25
PROVIDERS: PCP Internal Medicine; Visit Provider Hospitalist
DX: R91.8 Other nonspecific abnormal finding of lung field (principal); J18.9 Pneumonia, unspecified organism
CPT/HCPCS: 36415; 82784; 82785; 85652; 86038; 86481; 87389

== ENCOUNTER 2024-04-12 10:28 | Day surgery (SDC) | payer BC, SELFPAY ==
--- NOTE | 2024-04-08 14:28 | HO.ANESPROP2 ---
Documented by User: Luzma Erazo NP 04/08/24 14:29 HPI - Anesthesia Eval Consult details Narrative: 63yo M for Bronchoscopy Fiberoptic PMFSH Active Problems Active Problems: All Active Problems Pulmonary nodules (Acute) Standard chest x-ray abnormal (Acute) Ventricular ectopy (Acute) Chronic cough (Acute) Pneumonia (Acute) Asthma-COPD overlap syndrome (Acute) Past Medical History Medical History Pulmonary nodules Ventricular ectopy Chronic cough Pneumonia Asthma-COPD overlap syndrome Social History Social History Patient Tobacco Use Status: Former Tobacco user Tobacco use type: Cigarette Years Smoked: 30+ Years Second Hand Smoke Exposure: No Meds Allergies Allergy/AdvReac Type Severity Reaction Status Date / Time sulfamethoxazole AdvReac Severe Rash Verified 04/01/24 15:22 [From Bactrim] trimethoprim [From Bactrim] AdvReac Severe Rash Verified 04/01/24 15:22 Home Medications ?Medication ?Instructions ?Recorded ?Confirmed ?Last Taken ?Type albuterol sulfate 90 mcg/actuation 2 puff inhalation Q6H PRN 02/15/24 Unknown History aerosol inhaler citalopram 40 mg tablet (Celexa) 20 mg PO DAILY 02/15/24 Unknown History clonazepam 0.5 mg tablet (Klonopin) 0.5 mg PO DAILY 02/15/24 Unknown History lamotrigine 25 mg tablet (Lamictal) 25 mg PO DAILY 02/15/24 Unknown History quetiapine 25 mg tablet (Seroquel) 25 mg PO BEDTIME 02/15/24 Unknown History topiramate 25 mg tablet (Topamax) 25 mg PO DAILY 02/15/24 Unknown History trazodone 100 mg tablet 100 mg PO BEDTIME PRN 02/15/24 Unknown History citalopram 20 mg tablet 20 mg PO DAILY 04/01/24 Unknown History Exam Pertinent Lab Results Pertinent Lab Results: Laboratory Tests 03/28/24 08:04 WBC 11.3 H Hgb 13.5 L Hct 41.0 L Plt Count 234 Sodium 139 Potassium 4.0 Chloride 109 H Carbon Dioxide 25 BUN 17 H Creatinine 1.10 Assessment and Plan Assessment Anesthesia Assessment: Chart Reviewed Documented by User: Nayan Arshad MD 04/12/24 15:38 PMFSH Past Medical History Medical History Pulmonary nodules Ventricular ectopy Chronic cough Pneumonia Asthma-COPD overlap syndrome Family History Family history of problems with anesthesia: No Surgical History History of Problems with Anesthesia: No Social History Social History Patient Tobacco Use Status: Former Tobacco user Tobacco use type: Cigarette Years Smoked: 30+ Years Second Hand Smoke Exposure: No Meds Allergies Allergy/AdvReac Type Severity Reaction Status Date / Time sulfamethoxazole AdvReac Severe Rash Verified 04/01/24 15:22 [From Bactrim] trimethoprim [From Bactrim] AdvReac Severe Rash Verified 04/01/24 15:22 Home Medications ?Medication ?Instructions ?Recorded ?Confirmed ?Last Taken ?Type albuterol sulfate 90 mcg/actuation 2 puff inhalation Q6H PRN 02/15/24 Unknown History aerosol inhaler citalopram 40 mg tablet (Celexa) 20 mg PO DAILY 02/15/24 Unknown History clonazepam 0.5 mg tablet (Klonopin) 0.5 mg PO DAILY 02/15/24 Unknown History lamotrigine 25 mg tablet (Lamictal) 25 mg PO DAILY 02/15/24 Unknown History quetiapine 25 mg tablet (Seroquel) 25 mg PO BEDTIME 02/15/24 Unknown History topiramate 25 mg tablet (Topamax) 25 mg PO DAILY 02/15/24 Unknown History trazodone 100 mg tablet 100 mg PO BEDTIME PRN 02/15/24 Unknown History citalopram 20 mg tablet 20 mg PO DAILY 04/01/24 Unknown History Exam Airway Mallampati Class: II TM Dist: >3cm Neck ROM: Full Loose/Missing/Broken Teeth: Yes Assessment and Plan Assessment Anesthesia Assessment: Anesthesia Plan Discussed Final Anesthetic Review Family History of Problems with Anesthesia: No History of Problems with Anesthesia: No NPO: Yes ASA Class: III Final Preanesthetic Review: No Changes in Pt Med Stat, Meds/Allgs Chart Reviewed, Consent Obtained/Reviewed and Anes Risks/Benef Reviewed Patient Risk: Intermediate Procedure Risk: Low Anesthetic Plan Anesthetic Plan: GA Disposition: Standard PACU
--- NOTE | 2024-04-12 10:35 | MHC.SHP ---
Pre-Procedural Eval Section A - 24 Hr Update-Section A only Date of Service: 04/12/24 The patient is an INPATIENT: No Changes since office visit: No Cold of Flu in the past 2 weeks, No New Medical Problems, No Changes in Medication and No Patient answered all questions The patient has been examined within 24 hours of the surgical procedure. The History & Physical has been completed within 30 days and I have reviewed it.: Yes Section B - Complete if H&P > 30 days Chief Complaint: Pneumonia, unspecified organism Allergies: Allergies Allergy/AdvReac Type Severity Reaction Status Date / Time sulfamethoxazole AdvReac Severe Rash Verified 04/01/24 15:22 [From Bactrim] trimethoprim [From Bactrim] AdvReac Severe Rash Verified 04/01/24 15:22 Plan I have reviewed the history and physical and performed a pertinent physical examination on my patient. No changes have occurred unless specified. Time Spent With Patient Time: Total time managing care of this patient today ____ minutes.
[2024-04-12 10:51] VITALS: BMI 42.1
[2024-04-12 11:04] VITALS: BP 132/85; PULSE 70; RESP 18; TEMP 36.6; O2SAT 98
[2024-04-12] MEDS: Lactated Ringers 1,000 ML 100 ML IVCONT (11:05)
[2024-04-12 12:55] VITALS: BP 150/70; PULSE 72; RESP 20; TEMP 36.9; O2SAT 100
[2024-04-12 13:00] VITALS: BP 129/50; PULSE 68; RESP 18; O2SAT 96
--- NOTE | 2024-04-12 13:03 | PM.OP ---
Brief Operative Note Date of Service: 04/12/24 Pre-op diagnosis: pneumonia Post-op diagnosis: other (pneumonia, RLL endobronchial polypoid area, Tracheobronchomalecia) Procedure: Bronchoscopy with biopsy, washings and brushings Implants: Surgeon: Kobe Michaels MD Anesthesia: GLMA Was an Automobile Damage Appraiser used for this Procedure?: No Estimated blood loss (mL): 1 Pathology: other (RLL ENDOBRONCHIAL BIOPSY) Condition: stable Disposition: same day
[2024-04-12 13:05] VITALS: BP 132/70; PULSE 67; RESP 18; O2SAT 96
[2024-04-12 13:10] VITALS: BP 124/67; PULSE 67; RESP 17; O2SAT 96
[2024-04-12 13:28] VITALS: BP 125/71; PULSE 66; RESP 17; TEMP 36.1; O2SAT 97
--- NOTE | 2024-04-13 00:03 | OP_ITS ---
DATE OF SERVICE: 04/12/2024 SURGEON: Kobe Michaels MD PREOPERATIVE DIAGNOSIS: Pneumonia. POSTOPERATIVE DIAGNOSIS: PROCEDURE PERFORMED: Bronchoscopy with biopsy, brushings and washings. ESTIMATED BLOOD LOSS: COMPLICATIONS: No evidence of any complications. ANESTHESIA: POWER. ASSISTANTS: None. SPECIMENS: ASA CLASSIFICATION: III. POSTOPERATIVE DIAGNOSES: Pneumonia along with chronic airway disease, tracheobronchomalacia, and polypoid lesion in the right lower lobe bronchus intermedius area. DESCRIPTION OF PROCEDURE: After the patient was adequately sedated, a flexible digital bronchoscope was inserted via the POWER to the level of the larynx. The larynx appeared to be a little edematous but otherwise normal. Vocal cords were moving symmetrically to the midline. There was indeed a little microaspiration appreciated suggesting the possibility of recurrent infections. After receiving the lidocaine, the bronchoscope was passed the vocal cords to the level of the trachea. Initially, the proximal trachea appeared to be narrowed, such as saber-sheath trachea and then met to lower part of the trachea where appeared to be more consistent with tracheomalacia. The patient also had evidence of bronchomalacia. There were some irregularities to the mucosa consistent with chronic airway disease. The patient did have moderate amount of mucid secretions. The bronchoscope was navigated to the entire tracheobronchial tree, examined without any evidence of any endobronchial lesions except for this polypoid area and the bronchus intermedius area, right lower lobe bronchi, where it was appeared to be normal mucosa, but it was just an area that was raised. Then, navigated to the left lower lobe area and cytologic and microscopic brushes were introduced into that area, sent to the appropriate locations. Bilateral washings were collected bilaterally, both for cytology and microbiology. Subsequently to that, using forceps, an endobronchial biopsy of the polypoid area and the right lower lobe bronchi was collected and sent in formalin to the pathologist. He did have some bleeding, but it was self limited and reached good hemostasis. The patient also was developing some hyperventilation with the LMA and CO2 elavation, so at that point we stopped the procedure. The patient tolerated the procedure well. Vital signs were stable throughout the procedure. MD RINKU Post/LORRIE / [id number] [facility] [place] [facility]
== END 2024-04-12 13:48 | disposition home or self-care (01) ==
PROVIDERS: PCP Internal Medicine; Visit Provider Hospitalist
PROC: 0BJ08ZZ Inspection of Tracheobronchial Tree, Via Natural or Artificial Opening Endoscopic (ICD-10-PCS; CPT 31622; principal; 2024-04-12 12:00)
DX: J18.9 Pneumonia, unspecified organism (principal); J44.9 Chronic obstructive pulmonary disease, unspecified; J39.8 Other specified diseases of upper respiratory tract; J98.09 Other diseases of bronchus, not elsewhere classified; Z87.891 Personal history of nicotine dependence
CPT/HCPCS: 31625; 31623; 87070; 87102; 87116; 87205; 87206; 88112; 88305; J0171; J2003; J2704; J3010

== ENCOUNTER → 2024-04-12 10:28 | Outpatient (BNV) | payer BC, SELFPAY | PROVIDERS: PCP Internal Medicine; Visit Provider Hospitalist | DX: J18.9 Pneumonia, unspecified organism (principal); J39.8 Other specified diseases of upper respiratory tract; J98.09 Other diseases of bronchus, not elsewhere classified; R91.1 Solitary pulmonary nodule | CPT/HCPCS: 31623; 31625 ==

== ENCOUNTER 2024-04-28 13:29 | Outpatient (AMB) | payer BC, SELFPAY ==
--- NOTE | 2024-04-28 13:34 | MHC.OFFVIS ---
Vital Signs 04/28/24 13:35 Weight 296 lb 8.348 oz BP 138/78 Blood Pressure Location Rt brachial Position Sitting Pulse 75 Pulse Source Pulse Oximeter Pulse Oximetry (%) 97 Oxygen Delivery Method Room Air Intake Visit Reasons: S/P Bronch Allergies sulfamethoxazole [From Bactrim] Adverse Reaction (Severe, Verified 04/28/24 13:38) Rash trimethoprim [From Bactrim] Adverse Reaction (Severe, Verified 04/28/24 13:38) Rash Medication List - Last Reconciled 04/28/24 by Brittney Mayer LPN albuterol sulfate 2.5 mg (3 mL) inhalation Q6H PRN 30 days albuterol sulfate 90 mcg/actuation 2 puffs inhalation Q6H PRN citalopram 20 mg PO DAILY citalopram (Celexa) 20 mg PO DAILY clonazepam (Klonopin) 0.5 mg PO DAILY fluticasone furoate-vilanterol 200-25 mcg/dose (Breo Ellipta) 1 inh inhalation DAILY 30 days lamotrigine (Lamictal) 25 mg PO DAILY quetiapine (Seroquel) 25 mg PO BEDTIME topiramate (Topamax) 25 mg PO DAILY trazodone 100 mg PO BEDTIME PRN HPI Comments Details: The patient is a 63-year-old gentleman with a known history of COPD in addition peumonia now presenting with recent pneumonia and abnormal chest x-ray. Pearly many years ago the patient is evaluated by Pulmonary and had an abnormal CT scan of the chest. At that point the patient did undergo a bronchoscopy for underlying cough chest congestion. The bronchoscopy demonstrated significant secretions. 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 The patient was treated effectively his symptoms improved for many years. He did continue to use his respiratory inhalers. However, more recently the patient started developing worsening cough again chest congestion. He went to [facility] urgent [facility] where he was evaluated. There he had a chest x-ray demonstrating some slight silhouetting of the right hemidiaphragm. Also some slight airspace disease and atelectasis. He was placed on antibiotics and currently he is starting to feel better. Is still having shortness of breath and also having cough. His congestion is indeed better. The patient does have some snoring. Although he denies having significant daytime drowsiness. He has had sleep studies in the past and have been. reassuring. On examination the patient is to have some ectopy. On further questioning he does state that he has had some palpitations. In view of that I do believe that switching his inhaler will be helpful to minimize the beta effect from the Symbicort. He has also been using his albuterol once or twice a day. I did encourage him to just use it as needed in view of his underlying ectopy. I do believe Trelegy will be a good option for him to minimize the palpitations and to maximize his bronchodilator effect. The patient also has chest congestion and with the atelectasis will benefit from a Acapella valve for chest physical therapy. I do believe that dose to additions will be helpful. Will go ahead and plan to repeat the x-ray. If is still has those changes primarily in the right base will plan to request a CT scan of the chest. 04/01/2024 the patient is here for a pulmonary follow-up visit. The patient is no better. He is still having significant congestion. Moderate severity. Also shortness of breath. Did complete a course of antibiotics without any significant improvement. The patient did have a normal CT scan back in the end of February. Subsequently after that was treated and then a repeat CT scan was done actually demonstrating worsening areas of irregular nodular densities in addition to patchy consolidations and pulmonary nodules. In view of his worsening CT scan and is ineffective response to antibiotics will plan to perform a bronchoscopy for diagnostic purposes and also hopefully for therapeutic purposes as well. Also, the patient will undergo blood work to further assess the worsening respiratory findings. 04/28/2024 the patient is here for a pulmonary follow-up visit. Overall the patient is doing okay. He did have the bronchoscopy. Did have some evidence of tracheomalacia and also narrowing of the trachea and also evidence of chronic airway disease. He had a little polypoid area that was biopsy as well. Her his cultures have been negative up-to-date although I am still waiting for the AFB cultures since there is a risk for smoldering non tuberculosis mycobacterial infection. The patient also has issues with reflux disease. We did talk about reflux diet and sleeping elevated. In the meantime will try him on azithromycin 500 mg 3 times a week to see if there is any improvement in his symptoms as we wait for the cultures. The patient does have Seroquel that he takes at nighttime. He will stop that so we can take the azithromycin. He also will check his QT with his EKG application. Again, we did look at his CT scan of the chest. It appears that he has some evidence of treating budding in nodular densities in a bronchovascular distribution. This indeed could be related to an infectious process although his cultures are negative again with still waiting for the AFB but also aspiration Bronchiolitis/pneumonitis is also in differential. [facility] Medical History Pulmonary nodules Ventricular ectopy Chronic cough Pneumonia Asthma-COPD overlap syndrome Social History Patient Tobacco Use Status: Former Tobacco user Tobacco use type: Cigarette Years Smoked: 30+ Years Second Hand Smoke Exposure: No Review of Systems Const Denies fever(s) Eyes Reports no additional complaints ENT Denies sore throat Card Denies chest pain Resp Reports chest congestion, Reports cough and Reports wheezing GI Reports no additional complaints Musc Reports no additional complaints Skin/Breast Denies rash Freddie/Lymph Denies lymphadenopathy Aller/Immun Reports wheezing Physical Exam Vital Signs: Last Vital Signs Pulse 75 04/28/24 13:35 BP 138/78 04/28/24 13:35 Pulse Ox 97 04/28/24 13:35 Oxygen Delivery Method Room Air 04/28/24 13:35 Const General: comfortable HEENT Head: Yes normocephalic Neck Neck: Yes supple Chest Chest palpation & inspection: normal inspection of the chest Resp Effort & Inspection: normal respiratory effort Auscultation: no rhonchi, no wheezes and diminished lung sounds Cardio Rate: regular rate Rhythm: regular rhythm and other (ectopy) Heart sounds: S1 normal heart sound present and S2 normal heart sound present GI Palpation (GI): Soft to palpation Skin General skin exam: no rashes or lesions noted Extrem General: Yes no clubbing, cyanosis or edema Assessment & Plan Assessment & Plan (1) Asthma-COPD overlap syndrome: Code(s): J44.89 - Other specified chronic obstructive pulmonary disease Category: Medical (2) Pneumonia: Code(s): J18.9 - Pneumonia, unspecified organism Category: Medical Qualifiers: Laterality: right Lung location: lower lobe of lung Pneumonia type: due to unspecified organism Qualified Code(s): J18.9 - Pneumonia, unspecified organism (3) Chronic cough: Code(s): R05.3 - Chronic cough Category: Medical (4) Pulmonary nodules: Code(s): R91.8 - Other nonspecific abnormal finding of lung field Category: Medical Plan start Azithromycin MWF hold Seroquel EKG, monitor QT awaitng AFB cultures Trelegy JOSH as needed F/U 3 months Medications: New azithromycin Thursday, Thursday, Thursday 500 mg PO 3XW 12 tabs 3RF 28 days Coding Level of Care Code Est Pt Level 4 (37347) Diagnoses Asthma-COPD overlap syndrome J44.89 Pneumonia of right lower lobe due to infectious organism J18.9 Laterality: right Lung location: lower lobe of lung Pneumonia type: due to unspecified organism Chronic cough R05.3 Pulmonary nodules R91.8 Time Spent (min) 17
[2024-04-28 13:35] VITALS: BP 138/78; PULSE 75; O2SAT 97
== END 2024-04-28 14:07 | disposition home or self-care (01) ==
LOC: HO.HPS 13:29
PROVIDERS: PCP Internal Medicine; Visit Provider Hospitalist
DX: J44.89 Other specified chronic obstructive pulmonary disease (principal); J18.9 Pneumonia, unspecified organism; R05.3 Chronic cough; R91.8 Other nonspecific abnormal finding of lung field
CPT/HCPCS: 99214

== ENCOUNTER → 2024-04-28 13:29 | Outpatient (BNVA) | payer BC, SELFPAY | PROVIDERS: PCP Internal Medicine; Visit Provider Hospitalist ==

== ENCOUNTER → 2024-04-29 13:07 | Outpatient (BNV) | payer BC, SELFPAY | PROVIDERS: PCP Internal Medicine; Visit Provider Internal Medicine Cardiovascular Disease | DX: J44.9 Chronic obstructive pulmonary disease, unspecified (principal) | CPT/HCPCS: 93010 ==

== ENCOUNTER → 2024-04-29 13:07 | Outpatient (REF) | payer BC, SELFPAY ==
--- NOTE | 2024-04-29 | ECG_ITS ---
Test Reason : COPD Blood Pressure : / mmHG Vent. Rate : 061 BPM Atrial Rate : 061 BPM P-R Int : 170 ms QRS Dur : 090 ms QT Int : 438 ms P-R-T Axes : 032 034 075 degrees QTc Int : 440 ms Normal sinus rhythm Nonspecific T wave abnormality Abnormal ECG No previous ECGs available Referred By: Kobe Michaels Electronically Signed By:SERGE CANALES MD
== END ==
LOC: HO.CARD 13:07
PROVIDERS: PCP Internal Medicine; Visit Provider Hospitalist
DX: J44.9 Chronic obstructive pulmonary disease, unspecified (principal)
CPT/HCPCS: 93005

== ENCOUNTER 2024-08-02 13:53 | Outpatient (AMB) | payer BC, SELFPAY ==
--- NOTE | 2024-08-02 13:54 | MHC.OFFVIS ---
Vital Signs 08/02/24 13:57 Height 5 ft 11 in Weight 308 lb 10.354 oz BMI 43.0 BP 142/88 H Blood Pressure Location Rt brachial Position Sitting Pulse 58 Pulse Source Pulse Oximeter Pulse Oximetry (%) 99 Oxygen Delivery Method Room Air Intake Visit Reasons: Asthma/COPD Allergies sulfamethoxazole [From Bactrim] Adverse Reaction (Severe, Verified 08/02/24 14:00) Rash trimethoprim [From Bactrim] Adverse Reaction (Severe, Verified 08/02/24 14:00) Rash HPI Comments Details: The patient is a 63-year-old gentleman with a known history of COPD in addition peumonia now presenting with recent pneumonia and abnormal chest x-ray. Pearly many years ago the patient is evaluated by Pulmonary and had an abnormal CT scan of the chest. At that point the patient did undergo a bronchoscopy for underlying cough chest congestion. The bronchoscopy demonstrated significant secretions. 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 The patient was treated effectively his symptoms improved for many years. He did continue to use his respiratory inhalers. However, more recently the patient started developing worsening cough again chest congestion. He went to [facility] urgent Care where he was evaluated. There he had a chest x-ray demonstrating some slight silhouetting of the right hemidiaphragm. Also some slight airspace disease and atelectasis. He was placed on antibiotics and currently he is starting to feel better. Is still having shortness of breath and also having cough. His congestion is indeed better. The patient does have some snoring. Although he denies having significant daytime drowsiness. He has had sleep studies in the past and have been. reassuring. On examination the patient is to have some ectopy. On further questioning he does state that he has had some palpitations. In view of that I do believe that switching his inhaler will be helpful to minimize the beta effect from the Symbicort. He has also been using his albuterol once or twice a day. I did encourage him to just use it as needed in view of his underlying ectopy. I do believe Trelegy will be a good option for him to minimize the palpitations and to maximize his bronchodilator effect. The patient also has chest congestion and with the atelectasis will benefit from a Acapella valve for chest physical therapy. I do believe that dose to additions will be helpful. Will go ahead and plan to repeat the x-ray. If is still has those changes primarily in the right base will plan to request a CT scan of the chest. 04/01/2024 the patient is here for a pulmonary follow-up visit. The patient is no better. He is still having significant congestion. Moderate severity. Also shortness of breath. Did complete a course of antibiotics without any significant improvement. The patient did have a normal CT scan back in the end of February. Subsequently after that was treated and then a repeat CT scan was done actually demonstrating worsening areas of irregular nodular densities in addition to patchy consolidations and pulmonary nodules. In view of his worsening CT scan and is ineffective response to antibiotics will plan to perform a bronchoscopy for diagnostic purposes and also hopefully for therapeutic purposes as well. Also, the patient will undergo blood work to further assess the worsening respiratory findings. 04/28/2024 the patient is here for a pulmonary follow-up visit. Overall the patient is doing okay. He did have the bronchoscopy. Did have some evidence of tracheomalacia and also narrowing of the trachea and also evidence of chronic airway disease. He had a little polypoid area that was biopsy as well. Her his cultures have been negative up-to-date although I am still waiting for the AFB cultures since there is a risk for smoldering non tuberculosis mycobacterial infection. The patient also has issues with reflux disease. We did talk about reflux diet and sleeping elevated. In the meantime will try him on azithromycin 500 mg 3 times a week to see if there is any improvement in his symptoms as we wait for the cultures. The patient does have Seroquel that he takes at nighttime. He will stop that so we can take the azithromycin. He also will check his QT with his EKG application. Again, we did look at his CT scan of the chest. It appears that he has some evidence of treating budding in nodular densities in a bronchovascular distribution. This indeed could be related to an infectious process although his cultures are negative again with still waiting for the AFB but also aspiration Bronchiolitis/pneumonitis is also in differential. 08/02/2024 the patient is here for a pulmonary follow-up visit. Overall the patient has been doing well. The azithromycin has been effective for him. His cultures were negative for AFB which is reassuring. Although he did have significant treating budding in pulmonary nodules on his CT scan from the fall of 2023. will plan to repeat the CT scan in the next several weeks to follow-up with those abnormalities. Hopefully there better. In the meantime he does continue to have dyspnea on exertion. He is maximized on the Trelegy. He has had some weight gain. This is likely contributing to his dyspnea. Also deconditioning. Will go ahead and request pulmonary function studies in order to start him on pulmonary rehabilitation at this time. He continues uses CPAP. The CPAP therapy continues to be affecting beneficial. His AHI is within normal limits. Therefore will keep his current settings. Will follow-up in 3-[address] scan. If he has any issues prior to that he will call for an earlier assessment. [facility] Medical History Pulmonary nodules Ventricular ectopy Chronic cough Pneumonia Asthma-COPD overlap syndrome Social History Patient Tobacco Use Status: Former Tobacco user Tobacco use type: Cigarette Years Smoked: 30+ Years Second Hand Smoke Exposure: No Review of Systems Const Denies fever(s) Eyes Reports no additional complaints ENT Denies sore throat Card Denies chest pain Resp Reports chest congestion, Reports cough and Reports wheezing GI Reports no additional complaints Musc Reports no additional complaints Skin/Breast Denies rash Freddie/Lymph Denies lymphadenopathy Aller/Immun Reports wheezing Physical Exam Vital Signs: Last Vital Signs Pulse 58 08/02/24 13:57 BP 142/88 H 08/02/24 13:57 Pulse Ox 99 08/02/24 13:57 Oxygen Delivery Method Room Air 08/02/24 13:57 BMI result Body Mass Index 43.0 Const General: comfortable HEENT Head: Yes normocephalic Neck Neck: Yes supple Chest Chest palpation & inspection: normal inspection of the chest Resp Effort & Inspection: normal respiratory effort Auscultation: no rhonchi, no wheezes and diminished lung sounds Cardio Rate: regular rate Rhythm: regular rhythm and other (ectopy) Heart sounds: S1 normal heart sound present and S2 normal heart sound present GI Palpation (GI): Soft to palpation Skin General skin exam: no rashes or lesions noted Extrem General: Yes no clubbing, cyanosis or edema Assessment & Plan Assessment & Plan (1) Asthma-COPD overlap syndrome: Code(s): J44.89 - Other specified chronic obstructive pulmonary disease Category: Medical (2) Pneumonia: Code(s): J18.9 - Pneumonia, unspecified organism Category: Medical Qualifiers: Laterality: right Lung location: lower lobe of lung Pneumonia type: due to unspecified organism Qualified Code(s): J18.9 - Pneumonia, unspecified organism (3) Chronic cough: Code(s): R05.3 - Chronic cough Category: Medical (4) Pulmonary nodules: Code(s): R91.8 - Other nonspecific abnormal finding of lung field Category: Medical Plan complete Azithromycin MWF AFB cultures negative Trelegy JOSH as needed PFTs start Pulmonary rehab CT chest F/U 3 months Orders: Orders PFT pulmonary function test Today J44 - Other specified chronic obstructive pulmonary disease Pulmonary Rehab Today J44. - Other specified chronic obstructive pulmonary disease CT chest wo IV con 2 Months R91.8 - Other nonspecific abnormal finding of lung field Medications: New RSVPreF3 antigen-AS01E (PF) 120 mcg/0.5 mL (Arexvy (PF)) 0.5 mL IM ONCE 1 day 1 ea 0RF J44.89 - Other specified chronic obstructive pulmonary disease Coding Level of Care Code Est Pt Level 4 (96968) Complex EM visit Add On G2211 Diagnoses Asthma-COPD overlap syndrome J44. Pneumonia of right lower lobe due to infectious organism J18.9 Laterality: right Lung location: lower lobe of lung Pneumonia type: due to unspecified organism Chronic cough R05.3 Pulmonary nodules R91.8 Time Spent (min) 17
[2024-08-02 13:57] VITALS: BP 142/88; PULSE 58; O2SAT 99; BMI 43.0
== END 2024-08-02 14:47 | disposition home or self-care (01) ==
PROVIDERS: PCP Internal Medicine; Visit Provider Hospitalist
DX: J44.89 Other specified chronic obstructive pulmonary disease (principal); J18.9 Pneumonia, unspecified organism; R05.3 Chronic cough; R91.8 Other nonspecific abnormal finding of lung field
CPT/HCPCS: 99214

== ENCOUNTER → 2024-08-02 13:53 | Outpatient (BNVA) | payer BC, SELFPAY | PROVIDERS: PCP Internal Medicine; Visit Provider Hospitalist ==

== ENCOUNTER 2024-08-02 14:36 | Outpatient (REF) | payer BC, SELFPAY ==
--- NOTE | 2024-08-02 15:25 | PFT_ITS ---
Indication: COPD Spirometry [FEV1 to FVC 59%; FEV1 1.99 L; FVC 3.35 L. no significant response to bronchodilators noted.] Lung Volumes [Total lung capacity 79% predicted; rescue volume 108% predicted; expiratory reserve volume 42% predicted] Diffusion Capacity [DLCO 90% predicted] Comparisons [None] Interpretation [There is an obstructive ventilatory defect consistent with moderate to severe COPD. No significant response to bronchodilators noted. Patient also has a mild restrictive ventilatory defect likely secondary to his body habitus. Although parenchymal lung conditions can be ruled out. Diffusing capacity is within normal limits. Clinical correlation warranted.] MTDD
== END 2024-08-02 14:37 | disposition home or self-care (01) ==
LOC: HO.RESP 14:36
PROVIDERS: PCP Internal Medicine; Visit Provider Hospitalist
DX: J44.89 Other specified chronic obstructive pulmonary disease (principal)
CPT/HCPCS: 94010; 94640; 94727; 94729

== ENCOUNTER 2024-09-30 13:27 | Outpatient (REF) | payer BC, SELFPAY ==
--- NOTE | ~2024-09-30 | CT_ITS ---
EXAMINATION: CT CHEST WITHOUT CONTRAST CLINICAL INFORMATION: Follow up abnormal opacities; other nonspecific abnormal finding of lung field. COMPARISON: CT chest 03/28/2024, 03/18/2024. Chest x-ray 03/28/2024. TECHNIQUE: Multidetector volumetric CT imaging of the chest was done. Axial MIP volume rendering provided. Sagittal and coronal reformatted images were obtained. This CT examination was performed using dose optimization techniques as appropriate, variously including the following: *Automated exposure control *Adjustment of mA and/or kV according to patient size (this includes techniques or standardized protocols for targeted exams where dose is matched to indication/reason for exam; i.e. extremities or head) *Use of iterative reconstruction technique FINDINGS: LUNGS: The previously seen multifocal small consolidative and groundglass opacities have resolved on the current examination. No residual acute disease identified. There is a stable thin-walled cyst in the posterior right apex. There is minimal subpleural reticular opacity in the superior segment left lower lobe, and subpleural lateral left upper lobe, apparent residua of prior infectious/inflammatory process. There is no effusion or pneumothorax. There is no suspicious pulmonary nodule. There is a calcified granuloma in the left inferior lower lobe, subpleural location. Small airways appear normal. Central airways are patent. MEDIASTINUM: Normal thyroid. No abnormal lymphadenopathy or mass. The aorta is normal in caliber and course without significant atheromatous disease. The main pulmonary artery is normal in size. Heart size is normal. There is no pericardial effusion. The esophagus appears mildly patulous. Normal GE junction. CORONARY ARTERY CALCIFICATION: None visualized on this study. AXILLA/CHEST WALL: No abnormal lymph nodes or other findings. UPPER ABDOMEN: Normal appearance. OSSEOUS STRUCTURES: No suspicious lytic or blastic bone lesions. CT/CT chest wo IV con IMPRESSION: 1. Essentially complete resolution of previously seen infectious/inflammatory abnormalities in both lungs. Only minimal residua evident in the lateral left upper lobe, subpleural upper left lower lobe. 2. Lungs are otherwise clear. There are a few scattered calcified granulomata. Electronically signed by: Ameya Siddiqui MD 09/30/2024 03:23 PM EDT
== END 2024-09-30 13:28 | disposition home or self-care (01) ==
LOC: HO.CT 13:27
PROVIDERS: PCP Internal Medicine; Visit Provider Hospitalist
DX: R91.8 Other nonspecific abnormal finding of lung field (principal)
CPT/HCPCS: 71250

== ENCOUNTER → 2024-09-30 13:29 | Outpatient (BNV) | payer BC, SELFPAY | PROVIDERS: PCP Internal Medicine; Visit Provider Radiology Diagnostic Radiology | DX: R91.8 Other nonspecific abnormal finding of lung field (principal) | CPT/HCPCS: 71250 ==

== ENCOUNTER 2024-10-21 13:57 | Outpatient (AMB) | payer BC, SELFPAY ==
[2024-10-21 14:00] VITALS: BP 132/68; PULSE 50; O2SAT 99; BMI 37.5
--- NOTE | 2024-10-21 14:00 | MHC.OFFVIS ---
Vital Signs 10/21/24 14:00 Height 5 ft 11 in Weight 268 lb 15.423 oz BMI 37.5 BP 132/68 Blood Pressure Location Lt brachial Pulse 50 Pulse Source Pulse Oximeter Pulse Oximetry (%) 99 Oxygen Delivery Method Room Air Intake Visit Reasons: Asthma/COPD [employer] Required: No Accompanied by: Self / Same As Patient Allergies sulfamethoxazole [From Bactrim] Adverse Reaction (Severe, Verified 10/21/24 14:03) Rash trimethoprim [From Bactrim] Adverse Reaction (Severe, Verified 10/21/24 14:03) Rash HPI Comments Details: The patient is a 64-year-old gentleman with a known history of COPD in addition peumonia now presenting with recent pneumonia and abnormal chest x-ray. Pearly many years ago the patient is evaluated by Pulmonary and had an abnormal CT scan of the chest. At that point the patient did undergo a bronchoscopy for underlying cough chest congestion. The bronchoscopy demonstrated significant secretions. 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 The patient was treated effectively his symptoms improved for many years. He did continue to use his respiratory inhalers. However, more recently the patient started developing worsening cough again chest congestion. He went to [facility] urgent [facility] where he was evaluated. There he had a chest x-ray demonstrating some slight silhouetting of the right hemidiaphragm. Also some slight airspace disease and atelectasis. He was placed on antibiotics and currently he is starting to feel better. Is still having shortness of breath and also having cough. His congestion is indeed better. The patient does have some snoring. Although he denies having significant daytime drowsiness. He has had sleep studies in the past and have been. reassuring. On examination the patient is to have some ectopy. On further questioning he does state that he has had some palpitations. In view of that I do believe that switching his inhaler will be helpful to minimize the beta effect from the Symbicort. He has also been using his albuterol once or twice a day. I did encourage him to just use it as needed in view of his underlying ectopy. I do believe Trelegy will be a good option for him to minimize the palpitations and to maximize his bronchodilator effect. The patient also has chest congestion and with the atelectasis will benefit from a Acapella valve for chest physical therapy. I do believe that dose to additions will be helpful. Will go ahead and plan to repeat the x-ray. If is still has those changes primarily in the right base will plan to request a CT scan of the chest. 04/01/2024 the patient is here for a pulmonary follow-up visit. The patient is no better. He is still having significant congestion. Moderate severity. Also shortness of breath. Did complete a course of antibiotics without any significant improvement. The patient did have a normal CT scan back in the end of February. Subsequently after that was treated and then a repeat CT scan was done actually demonstrating worsening areas of irregular nodular densities in addition to patchy consolidations and pulmonary nodules. In view of his worsening CT scan and is ineffective response to antibiotics will plan to perform a bronchoscopy for diagnostic purposes and also hopefully for therapeutic purposes as well. Also, the patient will undergo blood work to further assess the worsening respiratory findings. 04/28/2024 the patient is here for a pulmonary follow-up visit. Overall the patient is doing okay. He did have the bronchoscopy. Did have some evidence of tracheomalacia and also narrowing of the trachea and also evidence of chronic airway disease. He had a little polypoid area that was biopsy as well. Her his cultures have been negative up-to-date although I am still waiting for the AFB cultures since there is a risk for smoldering non tuberculosis mycobacterial infection. The patient also has issues with reflux disease. We did talk about reflux diet and sleeping elevated. In the meantime will try him on azithromycin 500 mg 3 times a week to see if there is any improvement in his symptoms as we wait for the cultures. The patient does have Seroquel that he takes at nighttime. He will stop that so we can take the azithromycin. He also will check his QT with his EKG application. Again, we did look at his CT scan of the chest. It appears that he has some evidence of treating budding in nodular densities in a bronchovascular distribution. This indeed could be related to an infectious process although his cultures are negative again with still waiting for the AFB but also aspiration Bronchiolitis/pneumonitis is also in differential. 08/02/2024 the patient is here for a pulmonary follow-up visit. Overall the patient has been doing well. The azithromycin has been effective for him. His cultures were negative for AFB which is reassuring. Although he did have significant treating budding in pulmonary nodules on his CT scan from the fall of 2023. will plan to repeat the CT scan in the next several weeks to follow-up with those abnormalities. Hopefully there better. In the meantime he does continue to have dyspnea on exertion. He is maximized on the Trelegy. He has had some weight gain. This is likely contributing to his dyspnea. Also deconditioning. Will go ahead and request pulmonary function studies in order to start him on pulmonary rehabilitation at this time. He continues uses CPAP. The CPAP therapy continues to be affecting beneficial. His AHI is within normal limits. Therefore will keep his current settings. Will follow-up in 3-[address] scan. If he has any issues prior to that he will call for an earlier assessment. 10/21/2024 the patient is here for pulmonary follow-up visit. Overall the patient is feeling lot better. He has been participating in pulmonary rehabilitation and has been very motivated. He has also been exercising his own on top of it and also working. He has been getting a lot of steps on a daily basis. In addition to that he has lost about 40 lb or more with the help of exercise and also the weight watchers jason. He is going to want to lose more weight. From a respiratory status is doing a lot better. He had recent CT scan of the chest that we personally reviewed in a lot of the nodular densities have subsided completely or resolved almost completely. Will plan to repeat the CAT scan in a year. He is complaining of a pulled muscle blood cell likely the trapezius on the left side. He has been taking some [id number] Motrin with only minimal improvement. I will give him prescription for Flexeril that he can use as like he can not tolerated. In then if he has any issues he can follow-up with his primary care doctor. If the patient develops any underlying respiratory issues prior to the next visit he will call for an earlier assessment. Otherwise will follow-up in a year's time. [facility] Medical History Pulmonary nodules Ventricular ectopy Chronic cough Pneumonia Asthma-COPD overlap syndrome Social History Patient Tobacco Use Status: Former Tobacco user Tobacco use type: Cigarette Years Smoked: 30+ Years Second Hand Smoke Exposure: No Review of Systems Const Denies chills, Denies fatigue, Denies fever(s), Denies weight gain and Denies weight loss Eyes Reports no additional complaints ENT Denies dizziness and Reports neck pain Card Denies chest pain, Denies leg edema, Denies lightheadedness, Denies palpitations, Denies dyspnea on exertion, Denies orthopnea and Denies other Resp Reports cough, Denies dyspnea on exertion and Denies wheezing GI Denies hematochezia and Denies change in stool character Musc Reports as per HPI, Denies abnormal gait, Reports myalgias, Denies muscle weakness, Reports neck pain, Denies numbness, Denies radiating pain into limb and Denies tingling Skin/Breast Denies rash Neuro Denies abnormal gait, Denies dizziness, Denies numbness and Denies tingling Endo Denies fatigue and Denies palpitations Freddie/Lymph Denies lymphadenopathy Aller/Immun Denies wheezing Physical Exam Vital Signs: Last Vital Signs Pulse 50 10/21/24 14:00 BP 132/68 10/21/24 14:00 Pulse Ox 99 10/21/24 14:00 Oxygen Delivery Method Room Air 10/21/24 14:00 BMI result Body Mass Index 37.5 Const General: comfortable HEENT Head: Yes normocephalic Neck Neck: Yes supple Chest Chest palpation & inspection: normal inspection of the chest Resp Effort & Inspection: normal respiratory effort Auscultation: clear to auscultation bilaterally, no rhonchi and no wheezes Cardio Rate: regular rate Rhythm: regular rhythm and other (ectopy) Heart sounds: S1 normal heart sound present and S2 normal heart sound present GI Palpation (GI): Soft to palpation Skin General skin exam: no rashes or lesions noted Extrem General: Yes no clubbing, cyanosis or edema Assessment & Plan Assessment & Plan (1) Asthma-COPD overlap syndrome: Code(s): J44.89 - Other specified chronic obstructive pulmonary disease Category: Medical (2) Pneumonia: Code(s): J18.9 - Pneumonia, unspecified organism Category: Medical Qualifiers: Laterality: right Lung location: lower lobe of lung Pneumonia type: due to unspecified organism Qualified Code(s): J18.9 - Pneumonia, unspecified organism (3) Chronic cough: Code(s): R05.3 - Chronic cough Category: Medical (4) Pulmonary nodules: Code(s): R91.8 - Other nonspecific abnormal finding of lung field Category: Medical Plan Breo JOSH as needed continue ulmonary rehab CT chest much improved, repeat 1 yr F/U 12 months Orders: Orders CT chest wo IV con 1 Year R91.8 - Other nonspecific abnormal finding of lung field Medications: New cyclobenzaprine 10 mg (2 x 5 mg) PO Q8H 10 days PRN 30 tabs 0RF muscle spasm Changed From albuterol sulfate 90 mcg/actuation 2 puffs inhalation Q6H PRN To albuterol sulfate 90 mcg/actuation 2 puffs inhalation Q6H 30 days PRN 8.5 grams 11RF shortness of breath or wheezing Coding Level of Care Code Est Pt Level 4 (58958) Diagnoses Asthma-COPD overlap syndrome J44.89 Pneumonia of right lower lobe due to infectious organism J18.9 Laterality: right Lung location: lower lobe of lung Pneumonia type: due to unspecified organism Chronic cough R05.3 Pulmonary nodules R91.8 Time Spent (min) 17
== END 2024-10-21 14:21 | disposition home or self-care (01) ==
LOC: HO.HPS 13:58
PROVIDERS: PCP Internal Medicine; Visit Provider Hospitalist
DX: J44.89 Other specified chronic obstructive pulmonary disease (principal); J18.9 Pneumonia, unspecified organism; R05.3 Chronic cough; R91.8 Other nonspecific abnormal finding of lung field
CPT/HCPCS: 99214